=== PATIENT | male | born 1965 | race Hispanic/Latino ===

== ENCOUNTER 2020-01-05 15:41 | Inpatient (IN) | payer OTHER ==
[2020-01-05] MEDS ORDERED: MORPHINE 4 MG/1 ML INJ IV ONE (16:16)
[2020-01-05] MEDS ORDERED: ONDANSETRON 4 MG/2 ML INJ IV ONE (16:17)
--- NOTE | 2020-01-05 16:26 | Emergency Department Report ---
ED Chest Pain HPI - General Chief Complaint: Chest Pain Stated Complaint: CHEST PAIN Time Seen by Provider: 01/05/20 16:06 Source: patient Mode of arrival: Stretcher Limitations: No Limitations - History of Present Illness Initial Comments: 54-year-old male with no significant past medical history presents to the hospital with chest pain a started 2 to 3 hours prior to arrival. 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 He had l lightheadedness, sharp substernal chest pain, shortness of breath, and diaphoresis. No nausea vomiting reported. Pain is intermittent somewhat worse with inspiration and not any change with palpation. Patient received 2 nitroglycerin and aspirin prior to arrival with some mild improvement in pain but it has since returned. Patient states his dad had an CO in his 50s. Patient sees a primary care doctor once a year with last visit 3 to 4 months ago and denies pre-existing medical conditions. Patient does not smoke cigarettes. He also denies recent travel, calf tenderness, leg edema, history of PE/DVT. Patient denies cough, fever, or infectious symptoms EKG was presented to me by [facility] and revealed ST depressions therefore I immediately went to evaluate patient. Initially EMS EKG reviewed and without these acute changes. - Related Data Allergies Allergy/AdvReac Type Severity Reaction Status Date / Time No Known Allergies Allergy Unverified 01/05/20 16:11 Heart Score - HEART Score History: Highly suspicious EKG: Significant ST-depression Age: 45-65 Risk factors: 1-2 risk factors Troponin: < normal limit HEART Score: 6 ED Review of Systems ROS: Stated complaint: CHEST PAIN Other details as noted in HPI Comment: All other systems reviewed and negative ED Past Medical Hx - Past Medical History Previous Medical History?: No - Surgical History Past Surgical History?: No ED Physical Exam - General Limitations: No Limitations - Other Other exam information: General: Moderate distress secondary to pain Head: Atraumatic Eyes: normal appearance ENT: Moist mucous membranes Neck: Normal appearance, no midline tenderness Chest: Clear to auscultation bilaterally, chest wall nontender CV: Regular rate and rhythm Abdomen: Soft, normal bowel sounds, nontender, nondistended, no rebound or guarding Back: Normal inspection Extremity: Normal inspection, full range of motion, no calf tenderness or leg edema Neuro: Alert O x 3, no facial asymmetry, speech clear, no gross motor sensory deficit Psych: Appropriate behavior Skin: Diaphoretic ED Course Vital Signs 01/05/20 01/05/20 01/05/20 15:52 15:56 16:00 Temperature Pulse Rate 67 63 59 L Respiratory 15 14 20 Rate Blood Pressure 157/86 157/86 Blood Pressure [Right] O2 Sat by Pulse 98 Oximetry 01/05/20 01/05/20 01/05/20 16:06 16:10 16:11 Temperature 98.0 F Pulse Rate 63 59 L Respiratory 15 10 L Rate Blood Pressure 141/83 141/83 Blood Pressure [Right] O2 Sat by Pulse 98 Oximetry 01/05/20 01/05/20 01/05/20 16:16 16:24 16:27 Temperature 97.6 F Pulse Rate 64 58 L 53 L Respiratory 17 18 20 Rate Blood Pressure 124/82 Blood Pressure 122/59 [Right] O2 Sat by Pulse 99 99 98 Oximetry 01/05/20 01/05/20 01/05/20 16:31 16:35 16:41 Temperature Pulse Rate 50 L 58 L 47 L Respiratory 8 L 13 15 Rate Blood Pressure 144/90 124/82 124/82 Blood Pressure [Right] O2 Sat by Pulse 99 99 100 Oximetry 01/05/20 01/05/20 01/05/20 16:45 16:51 16:55 Temperature Pulse Rate 52 L 57 L 53 L Respiratory 12 12 11 L Rate Blood Pressure 124/82 124/82 144/90 Blood Pressure [Right] O2 Sat by Pulse 98 98 99 Oximetry 01/05/20 01/05/20 01/05/20 17:00 17:05 17:11 Temperature Pulse Rate 54 L 51 L 58 L Respiratory 14 9 L 13 Rate Blood Pressure 144/90 167/88 167/88 Blood Pressure [Right] O2 Sat by Pulse 99 100 99 Oximetry 01/05/20 01/05/20 01/05/20 17:15 17:21 17:25 Temperature Pulse Rate 194 H Respiratory 17 15 19 Rate Blood Pressure 167/88 170/96 149/94 Blood Pressure [Right] O2 Sat by Pulse 99 98 98 Oximetry 01/05/20 01/05/20 01/05/20 17:31 17:35 17:41 Temperature Pulse Rate 106 H 105 H 100 H Respiratory 14 14 10 L Rate Blood Pressure 149/94 149/94 145/104 Blood Pressure [Right] O2 Sat by Pulse 97 97 98 Oximetry 01/05/20 01/05/20 17:45 17:51 Temperature Pulse Rate 92 H 113 H Respiratory 17 10 L Rate Blood Pressure 152/110 152/110 Blood Pressure [Right] O2 Sat by Pulse 99 97 Oximetry - Reevaluation(s) Reevaluation #1: 01/05/20 16:42 pain suddenly stopped. Repeat ekg ordered 01/05/20 16:49 Pain-free EKG shows resolution of ST depressions suggesting initial changes secondary to unstable angina 01/05/20 at 17:44 around 17:17 I was called to the room for acute change in patient's status. Patient was unresponsive and had V. tach. On the monitor without palpable pulse. Precordial thump attempted well retrieving defibrillator monitor. Chest compressions initiated. After placement on defibrillator patient received defibrillation at 200 J (for vtach) with continued chest compressions. Temporary improvement in rhythm to narrow complex that then quickly deteriorated back to V. tach. Patient received another defibrillator shock 200 J with continued [id number] ventilator support. Rhythm became narrow complex and patient became more responsive with 100% saturation on room air. Once aroused patient had no memory of what had occurred denied any chest pain. Case to be discussed with Dr. Wetzel, Defense Attorney activated, he agrees with amiodarone 150 mg bolus. Epinephrine was not administered during code. Patient started to develop chest pain shortly after successful resuscitation. Nitro initiated at 20mcg and titrated up with improvement in pain. repeat ekg shows afib rate [address] depression in inf and ant/lat leads. also at bedside at this time. - Consultations Consultation #1: 01/05/20 16:[address] Wetzel after review of EKGs from EMS and a ED. Also suspicious for ACS given ST depressions however, there is no signs of ST elevation CO. I do however, notice ST elevation in lead II on the monitor and will repeat EKG after pain medication PATRICK score - Patrick Score Age > 65: (0) No Aspirin use within the Past 7 Days: (0) No 3 or more CAD Risk Factors: (0) No 2 or more Angina events in past 24 hrs: (1) Yes Known CAD with more than 50% Stenosis: (0) No Elevated Cardiac Markers: (0) No ST Deviation Greater than 0.5mm: (1) Yes PATRICK Score: 2 ED Medical Decision Making - Lab Data Result diagrams: 01/05/20 16:27 01/05/20 16:27 Lab Results 01/05/20 01/05/20 01/05/20 Range/Units 16:27 16:27 16:27 WBC 13.0 H (4.5-11.0) K/mm3 RBC 5.10 H (3.65-5.03) M/mm3 Hgb 15.6 H (11.8-15.2) gm/dl Hct 46.8 H (35.5-45.6) % MCV 92 (84-94) fl MCH 31 (28-32) pg MCHC 33 (32-34) % RDW 13.0 L (13.2-15.2) % Plt Count 243 (140-440) K/mm3 Lymph % (Auto) 14.9 (13.4-35.0) % [place] % (Auto) 7.4 H (0.0-7.3) % Eos % (Auto) 0.4 (0.0-4.3) % Baso % (Auto) 0.3 (0.0-1.8) % Lymph # 1.9 (1.2-5.4) K/mm3 [place] # 1.0 H (0.0-0.8) K/mm3 Eos # 0.1 (0.0-0.4) K/mm3 Baso # 0.0 (0.0-0.1) K/mm3 Seg Neutrophils % 77.0 H (40.0-70.0) % Seg Neutrophils # 10.0 H (1.8-7.7) K/mm3 PT 12.6 (12.2-14.9) Sec. INR 0.93 (0.87-1.13) APTT 27.5 (24.2-36.6) Sec. Sodium 136 L (137-145) mmol/L Potassium 4.1 (3.6-5.0) mmol/L Chloride 100.0 (98-107) mmol/L Carbon Dioxide 21 L (22-30) mmol/L Anion Gap 19 mmol/L BUN 21 H (9-20) mg/dL Creatinine 1.0 (0.8-1.5) mg/dL Estimated GFR > 60 ml/min BUN/Creatinine Ratio 21 % Glucose 181 H (75-100) mg/dL Calcium 9.5 (8.4-10.2) mg/dL Troponin T (0.00-0.029) ng/mL 01/05/20 Range/Units 16:27 WBC (4.5-11.0) K/mm3 RBC (3.65-5.03) M/mm3 Hgb (11.8-15.2) gm/dl Hct (35.5-45.6) % MCV (84-94) fl MCH (28-32) pg MCHC (32-34) % RDW (13.2-15.2) % Plt Count (140-440) K/mm3 Lymph % (Auto) (13.4-35.0) % [place] % (Auto) (0.0-7.3) % Eos % (Auto) (0.0-4.3) % Baso % (Auto) (0.0-1.8) % Lymph # (1.2-5.4) K/mm3 [place] # (0.0-0.8) K/mm3 Eos # (0.0-0.4) K/mm3 Baso # (0.0-0.1) K/mm3 Seg Neutrophils % (40.0-70.0) % Seg Neutrophils # (1.8-7.7) K/mm3 PT (12.2-14.9) Sec. INR (0.87-1.13) APTT (24.2-36.6) Sec. Sodium (137-145) mmol/L Potassium (3.6-5.0) mmol/L Chloride (98-107) mmol/L Carbon Dioxide (22-30) mmol/L Anion Gap mmol/L BUN (9-20) mg/dL Creatinine (0.8-1.5) mg/dL Estimated GFR ml/min BUN/Creatinine Ratio % Glucose (75-100) mg/dL Calcium (8.4-10.2) mg/dL Troponin T < 0.010 (0.00-0.029) ng/mL - EKG Data -: EKG Interpreted by De EKG shows normal: sinus rhythm, ST-T waves (Inferior and anterolateral ST depression) - EKG Data When compared to previous EKG there are: previous EKG unavailable - Radiology Data Radiology results: report reviewed CHEST 1 VIEW 01/05/2020 4:35 PM INDICATION / CLINICAL INFORMATION: Chest pain. COMPARISON: None available. FINDINGS: SUPPORT DEVICES: None. HEART / MEDIASTINUM: No significant abnormality. LUNGS / PLEURA: No significant pulmonary or pleural abnormality. No pneumothorax. ADDITIONAL FINDINGS: No significant additional findings. IMPRESSION: 1. No acute findings. - Medical Decision Making Patient having intermittent waxing and waning chest pain with intermittent EKGs findings suggestive of unstable angina. Patient received nitroglycerin and aspirin in route. In the ED he received morphine, Zofran with initiation of a heparin bolus and drip and nitroglycerin drip. Case discussed several times with interventionalist Dr. Wetzel His nurse practitioner came to the ED to evaluate patient. 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 ED Disposition Clinical Impression: Unstable angina, V tach, Cardiac arrest with successful resuscitation Disposition: DC-09 OP ADMIT IP TO THIS HOSP Is pt being admited?: Yes Condition: Stable Referrals: PRIMARY CARE, [Primary Care Provider] - 3-5 Days Time of Disposition: 17:50 (Dr Fonseca/hosp)
[2020-01-05 16:39] LABS: Basophils % (Auto) 0.3 % (0.0-1.8); Eosinophils # (Auto) 0.1 K/mm3 (0.0-0.4); Eosinophils % (Auto) 0.4 % (0.0-4.3); Hematocrit 46.8 % (35.5-45.6); Hemoglobin 15.6 gm/dl (11.8-15.2); Lymphocytes # (Auto) 1.9 K/mm3 (1.2-5.4); Lymphocytes % (Auto) 14.9 % (13.4-35.0); Mean Corpuscular HGB Conc 33 % (32-34); Mean Corpuscular Volume 92 fl (84-94); Monocytes % (Auto) 7.4 % (0.0-7.3); Platelet Count 243 K/mm3 (140-440)
[2020-01-05] MEDS ORDERED: HEPARIN 10,000 UNITS/10 ML VIAL IV ONE (16:41)
[2020-01-05] MEDS ORDERED: NITROPRUSSIDE 50 MG in DEXTROSE 5% IN WATER 248 ML IV ONE (16:45)
[2020-01-05 16:48] LABS: BUN/Creatinine Ratio 21; Blood Urea Nitrogen 21 mg/dL (9-20); Calcium 9.5 mg/dL (8.4-10.2); Hemolysis Index 17
--- NOTE | 2020-01-05 16:48 | XRay Report ---
CHEST 1 VIEW 01/05/2020 4:35 PM INDICATION / CLINICAL INFORMATION: Chest pain. COMPARISON: None available. FINDINGS: SUPPORT DEVICES: None. HEART / MEDIASTINUM: No significant abnormality. LUNGS / PLEURA: No significant pulmonary or pleural abnormality. No pneumothorax. ADDITIONAL FINDINGS: No significant additional findings. IMPRESSION: 1. No acute findings. Signer Name: Gregorio John MD Signed: 01/05/2020 4:44 PM Workstation Name: [id number]
[2020-01-05 16:50] LABS: INR 0.93 (0.87-1.13)
[2020-01-05 16:51] LABS: Partial Thromboplastin Time 27.5 Sec. (24.2-36.6)
[2020-01-05] MEDS: HEPARIN/ 0.45% NACL DRIP 25,000 UNIT/500 ML BAG IV SCH ×2 (17:00→23:05)
--- NOTE | 2020-01-05 17:11 | Consultation ---
<BRIT DUNCAN - Last Filed: 01/05/20 17:04> History of Present Illness Consult date: 01/05/20 Consult reason: chest pain History of present illness: Pt is a 54 y.o. male with no significant past medical hx. He is previously unknown to our practice. Pt presented via EMS with c/o intermittent midsternal, non-radiating CP, which he describes as burning and stabbing. Pt states the pain started after he ate lunch today. He initially felt lightheaded and dizzy post returning to work, after which he began to notice the onset of CP. His CP occurs in episodes lasting 15-20 minutes each. Pt also reports associated diaphoresis and SOB. Pt states the pain is worse upon inspiration. No relieving factors. He denies headache, syncope, palpitations, orthopnea, edema, fever/chills, and N/V. No improvement in pain with NTG and morphine. Trop negative. ECG upon admission revealed ST depressions and lateral T wave inversions. F/u ECG obtained during pain-free period normalized - NSR, no acute ischemic changes. CXR showed no acute findings. Past History Past Medical History: other (kidney stone) Past Surgical History: Other (vasectomy) Social history: denies: smoking, alcohol abuse, prescription drug abuse, IV drug use Family history: other ([place] - father) Medications and Allergies Allergies Allergy/AdvReac Type Severity Reaction Status Date / Time No Known Allergies Allergy Unverified 01/05/20 16:11 Active Meds: Active Medications Aspirin (Aspirin) 81 mg PO QDAY CABRERA Atorvastatin Calcium (Lipitor) 40 mg PO QHS CABRERA Heparin Sodium/Sodium Chloride (Heparin/ 0.45% Nacl-25,000 Unit/500 Ml) 25,000 unit in 500 mls @ 20 mls/hr IV TITRATE CABRERA; Protocol Sodium Nitroprusside 50 mg/ (Dextrose) 250 mls @ 721.212 mls/hr IV TITR ONE; Protocol Stop: 01/05/20 17:05 Review of Systems Constitutional: no weight loss, no weight gain, no fever, no chills, no fatigue, no weakness Ears, nose, mouth and throat: no ear pain, no tinnitis, no nasal congestion, no nasal discharge, no sore throat, no vertigo Cardiovascular: chest pain, lightheadedness, shortness of breath, no orthopnea, no palpitations, no edema, no syncope Respiratory: shortness of breath, pain on inspiration, no cough, no wheezing Gastrointestinal: no abdominal pain, no nausea, no vomiting, no diarrhea, no constipation Genitourinary Male: no dysuria, no flank pain Musculoskeletal: no neck stiffness, no neck pain, no muscle weakness, no muscle cramps Integumentary: no rash, no sores, no wounds Neurological: no head injury, no paralysis, no weakness, no parathesias, no numbness, no tingling, no seizures, no syncope, no vertigo, no headaches Endocrine: no cold intolerance, no heat intolerance Hematologic/Lymphatic: no easy bruising, no easy bleeding Allergic/Immunologic: no urticaria, no wheezing Physical Examination Last Vital Signs Temp 97.6 F 01/05/20 16: Pulse 53 L 01/05/20 16:27 Resp 20 01/05/20 16: BP 122/59 01/05/20 16: Pulse Ox 98 01/05/20 16:27 General appearance: mild distress HEENT: Positive: EOMI, Normocephaly, Mucus Membranes Moist Neck: Positive: neck supple, trachea midline. Negative: JVD/HJR Cardiac: Positive: Reg Rate and Rhythm, S1/S2 Lungs: Positive: clear to auscultation (bilaterally). Negative: No Wheeze, Rales, Rhonchi Neuro: Positive: Grossly Intact, Motor Function Intact, Coordination Normal, Sensory Function Intact. Negative: Numbness, Weakness Abdomen: Positive: Soft, Active Bowel Sounds. Negative: Tender Skin: Negative: Rash, Suspicious Lesions Musculoskeletal: No Pain Extremities: Present: upper extr. pulses, lower extr. pulses. Absent: edema Results 01/05/20 16:27 01/05/20 16:27 Coagulation 01/05/20 Range/Units 16:27 PT 12.6 (12.2-14.9) Sec. INR 0.93 (0.87-1.13) APTT 27.5 (24.2-36.6) Sec. CBC 01/05/20 Range/Units 16: WBC 13.0 H (4.5-11.0) K/mm3 RBC 5.10 H (3.65-5.03) M/mm3 Hgb 15.6 H (11.8-15.2) gm/dl Hct 46.8 H (35.5-45.6) % Plt Count 243 (140-440) K/mm3 Lymph # 1.9 (1.2-5.4) K/mm3 [place] # 1.0 H (0.0-0.8) K/mm3 Eos # 0.1 (0.0-0.4) K/mm3 Baso # 0.0 (0.0-0.1) K/mm3 Comprehensive Metabolic Panel 01/05/20 Range/Units 16:27 Sodium 136 L (137-145) mmol/L Potassium 4.1 (3.6-5.0) mmol/L Chloride 100.0 (98-107) mmol/L Carbon Dioxide 21 L (22-30) mmol/L BUN 21 H (9-20) mg/dL Creatinine 1.0 (0.8-1.5) mg/dL Glucose 181 H (75-100) mg/dL Calcium 9.5 (8.4-10.2) mg/dL - Imaging and Cardiology EKG: report reviewed, image reviewed - EKG Interpretation EKG shows: sinus rhythm EKG interpretations Repolarization changes or abnormalities: ST or T wave suggestive of ischemia Assessment and Plan Initiate heparin gtt and nitro gtt. Initiate ASA and statin therapy. Plan for LHC. Pt seen in conjunction with Dr. Wetzel, who agrees with the assessment and plan of care. - Patient Problems (1) STEMI (ST elevation myocardial infarction) Onset Date: ~01/05/20 Status: Acute <TIFFANY WETZEL - Last Filed: 01/05/20 19:13> Medications and Allergies Active Meds: Active Medications Aspirin (Aspirin) 81 mg PO QDAY CABRERA Atorvastatin Calcium (Lipitor) 40 mg PO QHS CABRERA Heparin Sodium/Sodium Chloride (Heparin/ 0.45% Nacl-25,000 Unit/500 Ml) 25,000 unit in 500 mls @ 20 mls/hr IV TITRATE CABRERA; Protocol Last Admin: 01/05/20 17:00 Dose: 1,000 units/hr, 20 mls/hr Documented by: Nitroglycerin/Dextrose (Tridil Drip 50mg/250ml) 50 mg in 250 mls @ 6 mls/hr IV TITR ONE; Protocol Stop: 01/07/20 10:53 Last Admin: 01/05/20 17:15 Dose: 25 mcg/min, 7.5 mls/hr Documented by: Sodium Chloride (Sodium Chloride Flush Syringe 10 Ml) 10 ml IV BID CABRERA Sodium Chloride (Sodium Chloride Flush Syringe 10 Ml) 10 ml IV PRN PRN PRN Reason: LINE FLUSH Physical Examination Vital Signs Pulse Resp 67 15 01/05/20 15:52 01/05/20 15:52 Results 01/05/20 16:27 01/05/20 16:27 Coagulation 01/05/20 Range/Units 16:27 PT 12.6 (12.2-14.9) Sec. INR 0.93 (0.87-1.13) APTT 27.5 (24.2-36.6) Sec. CBC 01/05/20 Range/Units 16:27 WBC 13.0 H (4.5-11.0) K/mm3 RBC 5.10 H (3.65-5.03) M/mm3 Hgb 15.6 H (11.8-15.2) gm/dl Hct 46.8 H (35.5-45.6) % Plt Count 243 (140-440) K/mm3 Lymph # 1.9 (1.2-5.4) K/mm3 [place] # 1.0 H (0.0-0.8) K/mm3 Eos # 0.1 (0.0-0.4) K/mm3 Baso # 0.0 (0.0-0.1) K/mm3 Comprehensive Metabolic Panel 01/05/20 Range/Units 16:27 Sodium 136 L (137-145) mmol/L Potassium 4.1 (3.6-5.0) mmol/L Chloride 100.0 (98-107) mmol/L Carbon Dioxide 21 L (22-30) mmol/L BUN 21 H (9-20) mg/dL Creatinine 1.0 (0.8-1.5) mg/dL Glucose 181 H (75-100) mg/dL Calcium 9.5 (8.4-10.2) mg/dL Assessment and Plan pt had emergent lhc showed lt main patent LAD proximal 95% culprit vessel circumflex patent OM1 OM 2 patent RCA patent normal V function. Unsuccessful PCI of his proximal ID with a drug-eluting 4.0 x 18 mm stent will be on dual antiplatelet procedure was done by the right radial approach high-dose statin. We will hold off beta-blockers in view of labile blood pressure discussed in detail with the patient patient's . - Patient Problems (1) Hyperlipemia, mixed Current Visit: Yes Status: Chronic (2) Acute diastolic (congestive) heart failure Current Visit: Yes Status: Acute (3) Cardiac arrest with successful resuscitation Current Visit: Yes Status: Acute (4) V tach Current Visit: Yes Status: Acute (5) Unstable angina Current Visit: No Status: Acute
[2020-01-05] MEDS ORDERED: NITROGLYCERIN DRIP 50 MG/250 ML BOTTLE IV ONE (17:14)
[2020-01-05] MEDS ORDERED: AMIODARONE 150 MG/3 ML INJ IV ONE (17:30)
[2020-01-05] MEDS ORDERED: ASPIRIN 325 MG TAB PO SCH (18:00)
[2020-01-05] MEDS ORDERED: MIDAZOLAM 2 MG/2 ML INJ ONE (18:01)
[2020-01-05] MEDS ORDERED: fentaNYL 100 MCG/2 ML INJ ONE (18:01)
[2020-01-05] MEDS ORDERED: VERAPAMIL 5 MG/2 ML INJ ONE (18:02)
[2020-01-05] MEDS ORDERED: HEPARIN/NS 5000 UNIT/500ML 1,000 ML IR ONE (18:02)
[2020-01-05] MEDS ORDERED: NITROGLYCERIN SYRINGE 3 ML ONE (18:02)
[2020-01-05] MEDS ORDERED: LIDOCAINE (2%) 20 MG/1 ML VIAL 20 ML MDV INFILTRATI ONE (18:02)
[2020-01-05] MEDS ORDERED: SODIUM CHLORIDE 0.9% 1000 ML 1,000 ML ONE (18:03)
[2020-01-05] MEDS: HEPARIN 10,000 UNITS/10 ML VIAL ONE ×2 (18:12→18:33)
--- NOTE | 2020-01-05 18:18 | History and Physical Report ---
History of Present Illness Chief complaint: Im having pain in my chest History of present illness: 54 YO Male with Obesity, Nephrolithisis presents to ED for evaluation. Patient states that he had experienced a sudden onset of pain in his chest which began approximately 3 hours prior to presentation to the hospital. 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 EMS notified and upon arrival the patient was found to be in distress and subsequently transported to [facility] for further evaluation and care. Patient seen and evaluated in the emergency department. Lab and imaging studies reviewed. Patient states that his pain is 7/10, sharp, crushing in nature, substernal, non radiating, associated with shortness of breath, associated with diaphoresis, worsened with exertion, relieved with rest, relieved with nitro.patient EKG showed ST depression. Cardiology team notified and then the emergency department. Patient subsequently developed cardiac arrest while in the [facility] department. Patient treated in accordance with ACLS protocol with return of perfusing rhythm. Patient taken urgently to cardiac Manager Auto for surgical intervention as per cardiology team. Patient admitted to ICU. No further history obtainable. No reports of fever, chills, palpitations, syncope, prolonged travel/immobility, individual/family history of DVT/PE/bleeding/blood clotting disorders, productive cough, skin rash, known ill contacts. No prior admission for review. No medication listed at time of admission for reconciliation. PUI?: No Past History Past Medical History: other (kidney stone) Past Surgical History: Other (vasectomy) Social history: denies: smoking, alcohol abuse, prescription drug abuse, IV drug use Family history: other ([place] - father) Medications and Allergies Allergies Allergy/AdvReac Type Severity Reaction Status Date / Time No Known Allergies Allergy Unverified 01/05/20 16:11 Home Medications Medication Instructions Recorded Confirmed Last Taken Type Aspirin EC [Halfprin EC] 81 mg PO QDAY #30 tablet 01/08/20 Unknown Rx AtorvaSTATin [Lipitor] 40 mg PO QHS #30 tablet 01/08/20 Unknown Rx Metoprolol [Lopressor TAB] 25 mg PO Q8HR #90 tablet 01/08/20 Unknown Rx Ticagrelor [Brilinta] 90 mg PO BID #60 tablet 01/08/20 Unknown Rx Active Meds: Active Medications Aspirin (Aspirin) 81 mg PO QDAY CABRERA Atorvastatin Calcium (Lipitor) 40 mg PO QHS [facility] Heparin Sodium/Sodium Chloride (Heparin/ 0.45% Nacl-25,000 Unit/500 Ml) 25,000 unit in 500 mls @ 20 mls/hr IV TITRATE CABRERA; Protocol Nitroglycerin/Dextrose (Tridil Drip 50mg/250ml) 50 mg in 250 mls @ 6 mls/hr IV TITR ONE; Protocol Stop: 01/07/20 10:53 Review of Systems Constitutional: no weight loss, no weight gain, no fever, no chills Ears, nose, mouth and throat: no ear pain, no ear discharge, no tinnitis, no decreased hearing, no nose pain Cardiovascular: chest pain, shortness of breath, dyspnea on exertion, no orthopnea, no rapid/irregular heart beat, no edema, no syncope Respiratory: no cough, no cough with sputum, no excessive sputum, no hemoptysis Gastrointestinal: no nausea, no vomiting, no diarrhea, no constipation Genitourinary Male: no hematuria, no flank pain, no discharge, no urinary frequency, no urinary hesitancy Rectal: no pain, no incontinence, no bleeding Musculoskeletal: no neck stiffness, no neck pain, no arm numbness/tingling, no shooting leg pain Integumentary: no rash, no pruritis, no redness, no sores Neurological: no transient paralysis, no paralysis, no weakness, no parathesias, no numbness, no tingling, no seizures Psychiatric: no memory loss, no change in sleep habits, no sleep disturbances, no insomnia, no change in appetite, no change in libido, no suicidal ideation Endocrine: no cold intolerance, no heat intolerance, no polyphagia, no excessive thirst, no polyuria, no nocturia, no excessive sweating Hematologic/Lymphatic: no easy bruising, no easy bleeding, no lymphadenopathy, no lymphedema Allergic/Immunologic: no urticaria, no allergic rhinitis, no persistent infections, no anaphylaxis Exam - Constitutional Vitals: Temp Pulse Resp BP Pulse Ox 97.6 F 53 L 20 122/59 98 01/05/20 16:27 01/05/20 16:27 01/05/20 16:27 01/05/20 16:27 01/05/20 16:27 General appearance: Present: mild distress - EENT Eyes: Present: PERRL ENT: hearing intact, clear oral mucosa - Neck Neck: Present: supple, normal ROM - Respiratory Respiratory effort: normal Respiratory: bilateral: CTA - Cardiovascular Heart Sounds: Present: S1 & S2. Absent: rub, click - Extremities Extremities: pulses symmetrical, No edema Peripheral Pulses: within normal limits - Abdominal General gastrointestinal: Present: soft, non-tender, non-distended, normal bowel sounds Male genitourinary: Present: normal - Integumentary Integumentary: Present: clear, warm, dry - Musculoskeletal Musculoskeletal: gait normal, strength equal bilaterally - Psychiatric Psychiatric: appropriate mood/affect, intact judgment & insight - Neurologic Neurologic: CNII-XII intact, moves all extremities Results - Labs CBC & Chem 7: 01/07/20 05:13 01/07/20 05:13 Labs: Abnormal lab results 01/05/20 01/05/20 Range/Units 16:27 16:27 WBC 13.0 H (4.5-11.0) K/mm3 RBC 5.10 H (3.65-5.03) M/mm3 Hgb 15.6 H (11.8-15.2) gm/dl Hct 46.8 H (35.5-45.6) % RDW 13.0 L (13.2-15.2) % Williamson % (Auto) 7.4 H (0.0-7.3) % Williamson # 1.0 H (0.0-0.8) K/mm3 Seg Neutrophils % 77.0 H (40.0-70.0) % Seg Neutrophils # 10.0 H (1.8-7.7) K/mm3 Sodium 136 L (137-145) mmol/L Carbon Dioxide 21 L (22-30) mmol/L BUN 21 H (9-20) mg/dL Glucose 181 H (75-100) mg/dL Assessment and Plan - Patient Problems (1) STEMI (ST elevation myocardial infarction) Onset Date: ~01/05/20 Status: Acute Plan to address problem: Cardiology consult placed in the emergency department. Patient taken urgently to cardiac catheterization lab for cardiac intervention, heparin drip, supportive care, serial EKG, pain control. (2) Acute diastolic (congestive) heart failure Status: Acute Plan to address problem: Cardiology consult placed in ED, supportive care, echocardiogram when medically stable, strict I/O, monitor urine output every shift, daily weight, low- sodium/cardiac diet when patient is able to tolerate oral diet, afterload reduction. (3) Cardiac arrest with successful resuscitation Status: Resolved Plan to address problem: Patient treated in accordance with ACLS protocol protocol with return of perfusing cardiac rhythm. (4) Unstable angina Status: Inactive Plan to address problem: Serial cardiac enzymes, EKG, cardiology consulted, heparin drip, supportive care, morphine, supplemental oxygen, nitro, aspirin. (5) Obesity hypoventilation syndrome Status: Acute Plan to address problem: Submental oxygen, nebulized therapy, supportive care, balanced diet, increased physical activity at discharge, (6) DVT prophylaxis Status: Acute Plan to address problem: SCD to bilateral lower extremities while in bed, continue heparin.
[2020-01-05] MEDS ORDERED: ALUM-MAG HYDROXIDE-SIMETHICONE 200-200-20MG/5ML ORAL LIQD 30 ML ONE (18:56)
[2020-01-05] MEDS ORDERED: TICAGRELOR 90 MG TAB ONE (18:56)
[2020-01-05] MEDS ORDERED: SODIUM CHLORIDE 0.9% 1000 ML 1,000 ML IV SCH (19:30)
--- NOTE | 2020-01-05 19:37 | Cardiac Catherization Report ---
LEFT HEART CATHETERIZATION AND PERCUTANEOUS CORONARY INTERVENTION AND ENDOVASCULAR ULTRASOUND REPORT CLINICAL INFORMATION: This is a 54-year-old gentleman with obesity and strong family history of premature coronary artery disease, presents with chest pain since 12 EKG. Initial EKG was nondiagnostic. His unstable angina treated. The patient went into V-Fib. The patient was brought emergently to the fence laborer. Procedure was done via the right radial artery, sterile technique, local anesthesia, 6-Angolan radial sheath inserted. LEFT SYSTEM FINDINGS: LV gram done in MALAYSIAN and ESTEVEZ shows normal LV function, LVEDP 20 mmHg, LV is 135, aortic is 134/96. No gradient across the aortic valve on pullback. RCA engaged with JR4 catheter, large dominant vessel, patent from proximally and distally. PDA, PLV are [id number] caliber vessel, patent. Left system engaged with an EBU 3.5 catheter. Left main is large and patent, bifurcates into large LAD that has proximal 99% lesion with PATRICK 2 flow. Diagonal 1 is a large caliber vessel, patent with mild luminal irregularities. Circumflex is a large caliber vessel, patent, bifurcates into large OM1 and OM2 that are patent. PERCUTANEOUS CORONARY INTERVENTION OF THE LAD: 1. Engaged the left system with EBU 3.5 guide catheter. 2. Used a short [place] wire to get into distal LAD. 3. Predilated with 2.5 x 12 times 2 inflations at 15 atmospheres. Restore a PATRICK 3 flow. 4. Intravascular ultrasound showed diffuse disease proximally with distal reference vessel 4.5 and proximally 5.0. 5. Stented with a 4.0 x 18 drug-eluting Xience stent, inflated to 16 atmospheres and postdilated at 4.5 x 12 at 12 atmospheres x 2 inflations. 6. Excellent angiographic result, PATRICK 3 flow, reduced stenosis 99% to 0. No dissection or perforation or embolization noted. 7. Repeat intravascular ultrasound showed stent was well opposed and expanded. No dissection or perforation noted. 8. Coronary wire and IVUS removed. Multiple angiograms, PATRICK 3 flow, excellent angiographic result. 9. A 6-Angolan guiding catheter taken over guidewire, 6-Angolan radial sheath was discontinued. Radial band applied. No hematoma, no bleeding. SUMMARY: 1. Successful PCI of the proximal LAD with a drug-eluting Xience 4.0 x 18, post-dilated with a 4.25 x 12 IVUS directed angiographically, left main is patent. Rest of the LAD is patent with mild irregularities. Diagonal 1 is a bjkdih-vv-cglme caliber vessel, patent with mild luminal irregularities. Circumflex is a large caliber vessel, patent, bifurcates into large OM1, OM2 patent. RCA is a large dominant vessel, patent. PDA, PLV patent. 2. Normal LV function. 3. Post-PCI care. Discussed this in detail with the patient's primary care doctor, patient and family. Aspirin, Brilinta, high dose statin. Hold off beta fredo and HAM in view of labile blood pressure. JOB# [id number] ANGELIQUE/VON
[2020-01-05 21:58] LABS: Chol/HDL Ratio 2.41 %
[2020-01-06 04:18] LABS: Basophils % (Auto) 0.2 % (0.0-1.8); Eosinophils # (Auto) 0.1 K/mm3 (0.0-0.4); Eosinophils % (Auto) 0.4 % (0.0-4.3); Hematocrit 45.3 % (35.5-45.6); Hemoglobin 15.3 gm/dl (11.8-15.2); Lymphocytes # (Auto) 2.1 K/mm3 (1.2-5.4); Lymphocytes % (Auto) 14.1 % (13.4-35.0); Mean Corpuscular HGB Conc 34 % (32-34); Mean Corpuscular Volume 91 fl (84-94); Monocytes # (Auto) 1.2 K/mm3 (0.0-0.8); Monocytes % (Auto) 7.6 % (0.0-7.3); Platelet Count 219 K/mm3 (140-440); Red Blood Count 4.97 M/mm3 (3.65-5.03); Red Cell Distribution Width 13.1 % (13.2-15.2)
[2020-01-06] MEDS: NITROGLYCERIN 0.4 MG TAB SUBL SL PRN ×2 (04:33→04:44)
[2020-01-06] MEDS ORDERED: METOPROLOL TARTRATE 25 MG TAB PO ONE (04:45)
[2020-01-06 04:56] LABS: Creatine Kinase MB 78.1 ng/mL (0.0-4.0)
[2020-01-06 04:58] LABS: BUN/Creatinine Ratio 20; Blood Urea Nitrogen 18 mg/dL (9-20); Calcium 8.8 mg/dL (8.4-10.2); Hemolysis Index 11
[2020-01-06] MEDS ORDERED: dilTIAZem/D5W 100 MG/100 ML BAG IV SCH (05:00)
[2020-01-06] MEDS ORDERED: MORPHINE 2 MG/1 ML INJ IM ONE (05:15)
[2020-01-06] MEDS: NITROGLYCERIN DRIP 50 MG/250 ML BOTTLE IV SCH ×3 (05:30→05:57)
[2020-01-06] MEDS ORDERED: AMIODARONE 150 MG in DEXTROSE 5% IN WATER 97 ML IV ONE (05:48)
[2020-01-06] MEDS ORDERED: NITROGLYCERIN 2% OINT 1 GM TP SCH (06:00)
[2020-01-06] MEDS ORDERED: METOPROLOL TARTRATE 25 MG TAB PO SCH (06:00)
[2020-01-06] MEDS: MORPHINE 2 MG/1 ML INJ IV PRN ×3 (06:55→23:07)
[2020-01-06] MEDS: AMIODARONE 900 MG in DEXTROSE 5% IN WATER 482 ML IV SCH (07:16)
[2020-01-06] MEDS: ASPIRIN EC 81 MG TAB PO SCH (10:17)
[2020-01-06] MEDS: METOPROLOL TARTRATE 25 MG TAB PO SCH ×2 (10:18→22:00)
[2020-01-06] MEDS: TICAGRELOR 90 MG TAB PO SCH ×3 (10:18→22:01)
[2020-01-06] MEDS ORDERED: KETOROLAC 30 MG/1 ML INJ IV SCH (10:30)
--- NOTE | 2020-01-06 10:49 | Progress Note ---
Assessment and Plan Non-STEMI Post V. fib arrest New onset atrial fibrillation Pleuritic chest pain Hyperlipidemia Coronary disease status post PCI Acute diastolic dysfunction Recommend in view of new onset atrial fibrillation probably from post V. fib arrest echo is pending continue IV amiodarone and IV heparin is on aspirin and Brilinta nitroglycerin was DC'd and started on Lopressor 25 mg 3 times a day anti-inflammatory for his pleuritic chest pain discussed this with patient's via face time with the patient EKG no longer shows ST depressions but has atrial fibrillation - Patient Problems (1) Hyperlipemia, mixed Current Visit: Yes Status: Chronic (2) Acute diastolic (congestive) heart failure Current Visit: Yes Status: Acute (3) Cardiac arrest with successful resuscitation Current Visit: Yes Status: Acute (4) V tach Current Visit: Yes Status: Acute (5) Unstable angina Current Visit: No Status: Inactive Subjective Date of service: 01/06/20 Principal diagnosis: nstemi and post v fib arrest Interval history: Patient was having chest pain which is reproducible last night and had atrial fi brillation this morning chest pain is better but it is worse when he takes a deep breath PUI?: No Objective Vital Signs Temp Pulse Pulse Resp BP BP Pulse Ox 01/06/20 10:13 97 01/06/20 08:41 97 H 19 88/60 01/06/20 08:30 91 H 17 88/60 01/06/20 08:21 105 H 17 98/53 01/06/20 08:11 92 H 17 89/55 01/06/20 08:00 98.1 F 82 18 89/55 01/06/20 07:51 90 17 97/59 01/06/20 07:41 89 18 98/54 90 01/06/20 07:30 88 21 98/54 99 01/06/20 07:21 101 H 24 96/60 91 01/06/20 07:11 111 H 17 96/55 93 01/06/20 07:00 98.1 F 96 H 24 98/52 92 01/06/20 06:51 88 29 H 95/59 91 01/06/20 06:41 99 H 33 H 112/63 92 01/06/20 06:30 118 H 23 112/63 92 01/06/20 06:21 120 H 20 105/67 93 01/06/20 06:11 119 H 28 H 108/61 93 01/06/20 06:01 125 H 17 108/61 94 01/06/20 05:51 117 H 22 117/69 92 01/06/20 05:41 135 H 22 133/61 91 01/06/20 05:31 112 H 20 132/72 95 01/06/20 05:21 141 H 18 132/72 96 01/06/20 05:11 143 H 15 132/72 94 01/06/20 05:01 132 H 22 104/77 93 01/06/20 04:51 141 H 18 114/78 93 01/06/20 04:44 138 H 127/73 01/06/20 04:41 129 H 24 144/91 96 01/06/20 04:36 124 H 144/91 01/06/20 04:33 126 H 144/91 01/06/20 04:31 120 H 20 144/91 97 01/06/20 04:21 130 H 22 137/93 01/06/20 04:11 128 H 21 137/93 01/06/20 04:01 130 H 20 137/93 01/06/20 04:00 142 H 98 01/06/20 03:51 122 H 12 137/93 01/06/20 03:41 126 H 21 137/93 01/06/20 03:31 116 H 12 137/93 01/06/20 03:21 123 H 13 137/93 01/06/20 03:11 120 H 17 137/93 01/06/20 03:07 98 F 01/06/20 03:00 125 H 15 137/93 01/06/20 02:51 122 H 28 H 143/92 01/06/20 02:41 122 H 31 H 143/92 01/06/20 02:30 123 H 19 160/89 01/06/20 02:21 133 H 13 143/92 01/06/20 02:11 119 H 13 143/92 01/06/20 02:00 102 H 16 143/92 01/06/20 01:51 133 H 13 150/76 01/06/20 01:41 122 H 16 150/76 01/06/20 01:31 134 H 12 150/76 01/06/20 01:21 137 H 14 150/76 01/06/20 01:11 121 H 14 150/76 01/06/20 01:01 124 H 20 150/76 01/06/20 00:51 129 H 17 138/82 01/06/20 00:41 141 H 11 L 138/82 01/06/20 00:31 120 H 19 138/82 01/06/20 00:21 134 H 13 138/82 01/06/20 00:11 125 H 20 138/82 01/06/20 00:01 133 H 25 H 138/82 01/06/20 00:00 136 H 98 01/05/20 23:51 133 H 25 H 160/89 01/05/20 23:50 98 F 01/05/20 23:41 130 H 25 H 160/89 01/05/20 22:00 134 H 01/05/20 21:56 129 H 98 01/05/20 20:43 99 01/05/20 20:00 97.7 F 01/05/20 17:51 113 H 10 L 152/110 97 01/05/20 17:45 92 H 17 152/110 99 01/05/20 17:41 100 H 10 L 145/104 98 01/05/20 17:35 105 H 14 149/94 97 01/05/20 17:31 106 H 14 149/94 97 01/05/20 17:25 19 149/94 98 01/05/20 17:21 15 170/96 98 01/05/20 17:15 194 H 17 167/88 99 01/05/20 17:11 58 L 13 167/88 99 01/05/20 17:05 51 L 9 L 167/88 100 01/05/20 17:00 54 L 14 144/90 99 01/05/20 16:55 53 L 11 L 144/90 99 01/05/20 16:51 57 L 12 124/82 98 01/05/20 16:45 52 L 12 124/82 98 01/05/20 16:41 47 L 15 124/82 100 01/05/20 16:35 58 L 13 124/82 99 01/05/20 16:31 50 L 8 L 144/90 99 01/05/20 16:27 97.6 F 53 L 20 122/59 98 01/05/20 16:24 58 L 18 99 01/05/20 16:16 64 17 124/82 99 01/05/20 16:11 98.0 F 01/05/20 16:10 59 L 10 L 141/83 98 01/05/20 16:06 63 15 141/83 01/05/20 16:00 59 L 20 157/86 98 01/05/20 15:56 63 14 157/86 01/05/20 15:52 67 15 - Physical Examination General: Other HEENT: Positive: EOMI, Normocephaly, Mucus Membranes Moist Neck: Positive: neck supple, trachea midline. Negative: JVD/HJR Cardiac: Positive: Irregularly Regular Lungs: Positive: clear to auscultation Neuro: Positive: Grossly Intact, Motor Function Intact, Coordination Normal, Sensory Function Intact. Negative: Numbness, Weakness Abdomen: Positive: Soft, Active Bowel Sounds. Negative: Tender Skin: Negative: Rash, Suspicious Lesions Musculoskeletal: No Pain Extremities: Present: upper extr. pulses, lower extr. pulses. Absent: edema - Labs and Meds Cardiac Enzymes 01/06/20 Range/Units 03:39 CK-MB (CK-2) 78.1 H (0.0-4.0) ng/mL Coagulation 01/05/20 Range/Units 16:27 PT 12.6 (12.2-14.9) Sec. INR 0.93 (0.87-1.13) APTT 27.5 (24.2-36.6) Sec. Lipids 01/05/20 Range/Units 21:02 Triglycerides 48 (2-149) mg/dL Cholesterol 152 (50-199) mg/dL HDL Cholesterol 63 H (40-59) mg/dL Cholesterol/HDL Ratio 2.41 % CBC 01/05/20 01/06/20 Range/Units 16:27 03:39 WBC 13.0 H 15.1 H (4.5-11.0) K/mm3 RBC 5.10 H 4.97 (3.65-5.03) M/mm3 Hgb 15.6 H 15.3 H (11.8-15.2) gm/dl Hct 46.8 H 45.3 (35.5-45.6) % Plt Count 243 219 (140-440) K/mm3 Lymph # 1.9 2.1 (1.2-5.4) K/mm3 [place] # 1.0 H 1.2 H (0.0-0.8) K/mm3 Eos # 0.1 0.1 (0.0-0.4) K/mm3 Baso # 0.0 0.0 (0.0-0.1) K/mm3 Comprehensive Metabolic Panel 01/05/20 01/06/20 Range/Units 16:27 03:39 Sodium 136 L 139 (137-145) mmol/L Potassium 4.1 4.2 (3.6-5.0) mmol/L Chloride 100.0 103.6 (98-107) mmol/L Carbon Dioxide 21 L 19 L (22-30) mmol/L BUN 21 H 18 (9-20) mg/dL Creatinine 1.0 0.9 (0.8-1.5) mg/dL Glucose 181 H 148 H (75-100) mg/dL Calcium 9.5 8.8 (8.4-10.2) mg/dL - Imaging and Cardiology EKG: report reviewed, image reviewed Cardiac cath: report reviewed (Left main patent LAD proximal 95 diagonal 1 patent circumflex pain obtuse marginal 1 obtuse marginal 2 patent RCA patent and normal V function PCI of the LAD with a drug-eluting 4.0 x 18 mm postdilated 4.25) - Telemetry EKG Rhythm: Atrial Fibrillation Repolarization changes or abnormalities: ST or T wave suggestive of ischemia
--- NOTE | 2020-01-06 10:49 | Progress Note ---
Assessment and Plan Assessment and plan: Acute coronary syndrome. Pt had emergent lhc showed lt main patent LAD proximal 95% culprit vessel circumflex patent OM1 OM 2 patent RCA patent normal V function. Unsuccessful PCI of his proximal ID with a drug-eluting 4.0 x 18 mm stent. Cardiology following. Patient will be maintained on DAPT but will hold off beta-blockers in view of labile blood pressure. Acute diastolic heart failure. Continue treatment per cardiology. s/p cardiopulmonary arrest/V. tach. Continue ICU/telemetry monitoring. Continue amiodarone and beta-fredo. Hyperlipidemia. Continue statins History Interval history: Pt is a 54 y.o. male with no significant past medical hx who presented via EMS with c/o intermittent midsternal, non-radiating CP, which he describes as burning and stabbing. No improvement in pain with NTG and morphine. Trop negative. ECG upon admission revealed ST depressions and lateral T wave inversions. F/u ECG obtained during pain-free period normalized - NSR, no acute ischemic changes. CXR showed no acute findings. Patient subsequently developed cardiac arrest while in the emergency department. Patient treated in accordance with ACLS protocol with return of perfusing rhythm. Patient taken urgently to cardiac Facing End Trimmer for surgical intervention as per cardiology team. The patient had emergent lhc showed lt main patent LAD proximal 95% culprit vessel circumflex patent OM1 OM 2 patent RCA patent normal V function. Unsuccessful PCI of his proximal ID with a drug-eluting 4.0 x 18 mm stent will be on dual antiplatelet procedure was done by the right radial approach high-dose statin. PUI?: No Hospitalist Physical - Constitutional Vitals: Temp Pulse Resp BP Pulse Ox 98.1 F 97 H 19 88/60 97 01/06/20 08:00 01/06/20 08:41 01/06/20 08:41 01/06/20 08:41 01/06/20 10:13 General appearance: Present: no acute distress - EENT Eyes: Present: PERRL, EOM intact ENT: hearing intact, clear oral mucosa, dentition normal - Neck Neck: Present: supple, normal ROM - Respiratory Respiratory effort: normal Respiratory: bilateral: CTA - Cardiovascular Rhythm: regular Heart Sounds: Present: S1 & S2. Absent: gallop, rub - Extremities Extremities: no ischemia, No edema, Full ROM - Abdominal General gastrointestinal: soft, non-tender, non-distended, normal bowel sounds - Integumentary Integumentary: Present: clear, warm, dry - Neurologic Neurologic: CNII-XII intact, moves all extremities PATRICK score - Patrick Score Age > 65: (0) No Aspirin use within the Past 7 Days: (0) No 3 or more CAD Risk Factors: (0) No 2 or more Angina events in past 24 hrs: (1) Yes Known CAD with more than 50% Stenosis: (0) No Elevated Cardiac Markers: (0) No ST Deviation Greater than 0.5mm: (1) Yes PATRICK Score: 2 Results - Labs CBC & Chem 7: 01/06/20 03:39 01/06/20 03:39 Labs: Laboratory Last Values WBC 15.1 K/mm3 (4.5-11.0) H 01/06/20 03:39 RBC 4.97 M/mm3 (3.65-5.03) 01/06/20 03:39 Hgb 15.3 gm/dl (11.8-15.2) H 01/06/20 03:39 Hct 45.3 % (35.5-45.6) 01/06/20 03:39 MCV 91 fl (84-94) 01/06/20 03:39 MCH 31 pg (28-32) 01/06/20 03:39 MCHC 34 % (32-34) 01/06/20 03:39 RDW 13.1 % (13.2-15.2) L 01/06/20 03:39 Plt Count 219 K/mm3 (140-440) 01/06/20 03:39 Lymph % (Auto) 14.1 % (13.4-35.0) 01/06/20 03:39 [place] % (Auto) 7.6 % (0.0-7.3) H 01/06/20 03:39 Eos % (Auto) 0.4 % (0.0-4.3) 01/06/20 03:39 Baso % (Auto) 0.2 % (0.0-1.8) 01/06/20 03:39 Lymph # 2.1 K/mm3 (1.2-5.4) 01/06/20 03:39 [place] # 1.2 K/mm3 (0.0-0.8) H 01/06/20 03:39 Eos # 0.1 K/mm3 (0.0-0.4) 01/06/20 03:39 Baso # 0.0 K/mm3 (0.0-0.1) 01/06/20 03:39 Seg Neutrophils % 77.7 % (40.0-70.0) H 01/06/20 03:39 Seg Neutrophils # 11.8 K/mm3 (1.8-7.7) H 01/06/20 03:39 PT 12.6 Sec. (12.2-14.9) 01/05/20 16:27 INR 0.93 (0.87-1.13) 01/05/20 16:27 APTT 27.5 Sec. (24.2-36.6) 01/05/20 16:27 Sodium 139 mmol/L (137-145) 01/06/20 03:39 Potassium 4.2 mmol/L (3.6-5.0) 01/06/20 03:39 Chloride 103.6 mmol/L (98-107) 01/06/20 03:39 Carbon Dioxide 19 mmol/L (22-30) L 01/06/20 03:39 Anion Gap 21 mmol/L 01/06/20 03:39 BUN 18 mg/dL (9-20) 01/06/20 03:39 Creatinine 0.9 mg/dL (0.8-1.5) 01/06/20 03:39 Estimated GFR > 60 ml/min 01/06/20 03:39 BUN/Creatinine Ratio 20 % 01/06/20 03:39 Glucose 148 mg/dL (75-100) H 01/06/20 03:39 Calcium 8.8 mg/dL (8.4-10.2) 01/06/20 03:39 Total Creatine Kinase 620 units/L (55-170) H 01/06/20 03:39 CK-MB (CK-2) 78.1 ng/mL (0.0-4.0) H 01/06/20 03:39 CK-MB (CK-2) Rel Index 12.5 (0-4) H 01/06/20 03:39 Troponin T 0.965 ng/mL (0.00-0.029) H* D 01/06/20 03:39 Triglycerides 48 mg/dL (2-149) 01/05/20 21:02 Cholesterol 152 mg/dL (50-199) 01/05/20 21:02 LDL Cholesterol Direct 90 mg/dL (50-130) 01/05/20 21:02 HDL Cholesterol 63 mg/dL (40-59) H 01/05/20 21:02 Cholesterol/HDL Ratio 2.41 % 01/05/20 21:02 Moses/IV: Voiding Method Urinal IV Catheter Type [Left Hand] Peripheral IV IV Catheter Type [Left Forearm Peripheral IV ] IV Catheter Type [Right Hand] Peripheral IV Active Medications - Current Medications Current Medications: Generic Name Dose Route Start Last Admin Trade Name Freq PRN Reason Stop Dose Admin Aspirin 81 mg 01/06/20 10:00 01/06/20 10:17 Halfprin Ec PO 81 mg QDAY CABRERA Administration Atorvastatin Calcium 40 mg 01/05/20 22:00 01/05/20 23:05 Lipitor PO 40 mg QHS CABRERA Administration Amiodarone HCl 900 mg/ 500 mls @ 33.333 mls/hr 01/06/20 06:00 01/06/20 07:16 Dextrose IV 1 mg/min DIRECT CABRERA 33.333 mls/hr Administration Protocol 1 MG/MIN Ketorolac Tromethamine 30 mg 01/06/20 10:30 Toradol IV 01/06/20 13:00 ONCE CABRERA Metoprolol Tartrate 25 mg 01/06/20 10:00 01/06/20 10:18 Metoprolol PO 25 mg Q8H CABRERA Administration Morphine Sulfate 2 mg 01/06/20 06:30 01/06/20 06:55 Morphine IV 2 mg Q6H PRN Administration chest pain Nitroglycerin 0.4 mg 01/06/20 04:24 01/06/20 04:44 Nitrostat SL 0.4 mg .Q5MIN PRN Administration Chest Pain Sodium Chloride 10 ml 01/05/20 22:00 Sodium Chloride Flush Syringe 10 Ml IV BID CABRERA Sodium Chloride 10 ml 01/05/20 18:16 Sodium Chloride Flush Syringe 10 Ml IV PRN PRN LINE FLUSH Ticagrelor 90 mg 01/05/20 22:00 01/06/20 10:18 Brilinta PO 90 mg BID CABRERA Administration
[2020-01-06] MEDS ORDERED: DIGOXIN 0.5 MG/2 ML INJ IV ONE ×3 (15:37→22:00)
[2020-01-07] MEDS: AMIODARONE 900 MG in DEXTROSE 5% IN WATER 482 ML IV SCH (01:28)
[2020-01-07] MEDS: METOPROLOL TARTRATE 25 MG TAB PO SCH ×3 (06:03→21:45)
[2020-01-07 06:14] LABS: Hematocrit 44.4 % (35.5-45.6); Hemoglobin 14.5 gm/dl (11.8-15.2)
[2020-01-07 06:21] LABS: Alanine Aminotransferase 57 units/L (7-56); Albumin 3.5 g/dL (3.9-5); BUN/Creatinine Ratio 24; Blood Urea Nitrogen 19 mg/dL (9-20); Calcium 8.5 mg/dL (8.4-10.2); Hemolysis Index 6
[2020-01-07] MEDS: MORPHINE 2 MG/1 ML INJ IV PRN (08:25)
[2020-01-07] MEDS: ASPIRIN EC 81 MG TAB PO SCH (10:02)
[2020-01-07] MEDS: TICAGRELOR 90 MG TAB PO SCH ×2 (10:02→21:45)
--- NOTE | 2020-01-07 10:40 | Progress Note ---
Assessment and Plan Assessment and plan: Acute coronary syndrome. Pt had emergent lhc showed lt main patent LAD proximal 95% culprit vessel circumflex patent OM1 OM 2 patent RCA patent normal V function. Unsuccessful PCI of his proximal ID with a drug-eluting 4.0 x 18 mm stent. Cardiology following. Continue aspirin, Brilinta, Lipitor and metoprolol. Acute diastolic heart failure. Continue treatment per cardiology. V. fib arrest. Continue ICU/telemetry monitoring. Amiodarone drip discontinued. New onset atrial fibrillation. Continue beta-fredo for rate control Hyperlipidemia. Continue Lipitor The high probability of a clinically significant, sudden or life threatening deterioration of the [cardiac] system(s) required my full and direct attention, intervention and personal management. The aggregate critical care time was [32] minutes. This time is in addition to time spent performing reported procedures but includes the following: [x] Data Review and interpretation [x] Patient assessment and monitoring of vital signs [x] Documentation [x] Medication orders and management History Interval history: Pt is a 54 y.o. male with no significant past medical hx who presented via EMS with c/o intermittent midsternal, non-radiating CP, which he describes as burning and stabbing. No improvement in pain with NTG and morphine. Trop negative. ECG upon admission revealed ST depressions and lateral T wave inversions. F/u ECG obtained during pain-free period normalized - NSR, no acute ischemic changes. CXR showed no acute findings. Patient subsequently developed cardiac arrest while in the emergency department. Patient treated in accordance with ACLS protocol with return of perfusing rhythm. Patient taken urgently to cardiac Nutrition Technician for surgical intervention as per cardiology team. The patient had emergent lhc showed lt main patent LAD proximal 95% culprit vessel circumflex patent OM1 OM 2 patent RCA patent normal V function. Unsuccessful PCI of his proximal ID with a drug-eluting 4.0 x 18 mm stent will be on dual antiplatelet procedure was done by the right radial approach high-dose statin. Hospitalist Physical - Constitutional Vitals: Temp Pulse Resp BP Pulse Ox 98.7 F 78 25 H 152/82 96 01/07/20 08:00 01/07/20 09:45 01/07/20 09:45 01/07/20 09:45 01/07/20 09:45 General appearance: Present: no acute distress - EENT Eyes: Present: PERRL, EOM intact ENT: hearing intact, clear oral mucosa, dentition normal - Neck Neck: Present: supple, normal ROM - Respiratory Respiratory effort: normal Respiratory: bilateral: CTA - Cardiovascular Rhythm: regular Heart Sounds: Present: S1 & S2. Absent: gallop, rub - Extremities Extremities: no ischemia, No edema, Full ROM - Abdominal General gastrointestinal: soft, non-tender, non-distended, normal bowel sounds - Integumentary Integumentary: Present: clear, warm, dry - Neurologic Neurologic: CNII-XII intact, moves all extremities PATRICK score - Patrick Score Age > 65: (0) No Aspirin use within the Past 7 Days: (0) No 3 or more CAD Risk Factors: (0) No 2 or more Angina events in past 24 hrs: (1) Yes Known CAD with more than 50% Stenosis: (0) No Elevated Cardiac Markers: (0) No ST Deviation Greater than 0.5mm: (1) Yes PATRICK Score: 2 Results - Labs CBC & Chem 7: 01/07/20 05:13 01/07/20 05:13 Labs: Laboratory Last Values WBC 15.1 K/mm3 (4.5-11.0) H 01/06/20 03:39 RBC 4.97 M/mm3 (3.65-5.03) 01/06/20 03:39 Hgb 14.5 gm/dl (11.8-15.2) 01/07/20 05:13 Hct 44.4 % (35.5-45.6) 01/07/20 05:13 MCV 91 fl (84-94) 01/06/20 03:39 MCH 31 pg (28-32) 01/06/20 03:39 MCHC 34 % (32-34) 01/06/20 03:39 RDW 13.1 % (13.2-15.2) L 01/06/20 03:39 Plt Count 170 K/mm3 (140-440) 01/07/20 05:13 Lymph % (Auto) 14.1 % (13.4-35.0) 01/06/20 03:39 [place] % (Auto) 7.6 % (0.0-7.3) H 01/06/20 03:39 Eos % (Auto) 0.4 % (0.0-4.3) 01/06/20 03:39 Baso % (Auto) 0.2 % (0.0-1.8) 01/06/20 03:39 Lymph # 2.1 K/mm3 (1.2-5.4) 01/06/20 03:39 [place] # 1.2 K/mm3 (0.0-0.8) H 01/06/20 03:39 Eos # 0.1 K/mm3 (0.0-0.4) 01/06/20 03:39 Baso # 0.0 K/mm3 (0.0-0.1) 01/06/20 03:39 Seg Neutrophils % 77.7 % (40.0-70.0) H 01/06/20 03:39 Seg Neutrophils # 11.8 K/mm3 (1.8-7.7) H 01/06/20 03:39 PT 12.6 Sec. (12.2-14.9) 01/05/20 16:27 INR 0.93 (0.87-1.13) 01/05/20 16:27 APTT 27.5 Sec. (24.2-36.6) 01/05/20 16:27 Heparin Anti-Xa Level 0.16 U.I./ml (0.3-0.7) L 01/06/20 10:40 Sodium 136 mmol/L (137-145) L 01/07/20 05:13 Potassium 4.2 mmol/L (3.6-5.0) 01/07/20 05:13 Chloride 102.9 mmol/L (98-107) 01/07/20 05:13 Carbon Dioxide 23 mmol/L (22-30) 01/07/20 05:13 Anion Gap 14 mmol/L 01/07/20 05:13 BUN 19 mg/dL (9-20) 01/07/20 05:13 Creatinine 0.8 mg/dL (0.8-1.5) 01/07/20 05:13 Estimated GFR > 60 ml/min 01/07/20 05:13 BUN/Creatinine Ratio 24 % 01/07/20 05:13 Glucose 136 mg/dL (75-100) H 01/07/20 05:13 POC Glucose 171 (70-105) H 01/06/20 12:37 Calcium 8.5 mg/dL (8.4-10.2) 01/07/20 05:13 Total Bilirubin 1.20 mg/dL (0.1-1.2) 01/07/20 05:13 AST 62 units/L (5-40) H 01/07/20 05:13 ALT 57 units/L (7-56) H 01/07/20 05:13 Alkaline Phosphatase 57 units/L (35-129) 01/07/20 05:13 Total Creatine Kinase 620 units/L (55-170) H 01/06/20 03:39 CK-MB (CK-2) 78.1 ng/mL (0.0-4.0) H 01/06/20 03:39 CK-MB (CK-2) Rel Index 12.5 (0-4) H 01/06/20 03:39 Troponin T 0.708 ng/mL (0.00-0.029) H* D 01/07/20 05:13 Total Protein 5.7 g/dL (6.3-8.2) L 01/07/20 05:13 Albumin 3.5 g/dL (3.9-5) L 01/07/20 05:13 Albumin/Globulin Ratio 1.6 % 01/07/20 05:13 Triglycerides 48 mg/dL (2-149) 01/05/20 21:02 Cholesterol 152 mg/dL (50-199) 01/05/20 21:02 LDL Cholesterol Direct 90 mg/dL (50-130) 01/05/20 21:02 HDL Cholesterol 63 mg/dL (40-59) H 01/05/20 21:02 Cholesterol/HDL Ratio 2.41 % 01/05/20 21:02 Moses/IV: Voiding Method Urinal IV Catheter Type [Left Hand] Peripheral IV IV Catheter Type [Left Forearm Peripheral IV ] IV Catheter Type [Right Hand] Peripheral IV Active Medications - Current Medications Current Medications: Generic Name Dose Route Start Last Admin Trade Name Freq PRN Reason Stop Dose Admin Aspirin 81 mg 01/06/20 10:00 01/07/20 10:02 Halfprin Ec PO 81 mg QDAY CABRERA Administration Atorvastatin Calcium 40 mg 01/05/20 22:00 01/06/20 22:03 Lipitor PO 40 mg QHS CABRERA Administration Metoprolol Tartrate 25 mg 01/07/20 06:00 01/07/20 06:03 Metoprolol PO 25 mg Q8HR CABRERA Administration Morphine Sulfate 2 mg 01/06/20 06:30 01/07/20 08:25 Morphine IV 2 mg Q6H PRN Administration chest pain Nitroglycerin 0.4 mg 01/06/20 04:24 01/06/20 04:44 Nitrostat SL 0.4 mg .Q5MIN PRN Administration Chest Pain Sodium Chloride 10 ml 01/05/20 22:00 01/07/20 10:03 Sodium Chloride Flush Syringe 10 Ml IV 10 ml BID CABRERA Administration Sodium Chloride 10 ml 01/05/20 18:16 Sodium Chloride Flush Syringe 10 Ml IV PRN PRN LINE FLUSH Ticagrelor 90 mg 01/05/20 22:00 01/07/20 10:02 Brilinta PO 90 mg BID CABRERA Administration
--- NOTE | 2020-01-07 14:19 | Progress Note ---
Assessment and Plan S/p PCI with TERESA to prox LAD on 01/05/2020. Continue ASA, Brilinta, and statin. Pt found to be in AF post-C, which has now converted to NSR. Continue telemetry monitoring. Continue PO Lopressor 25mg q8hr. Possible discharge in AM. F/u with Dr. Wetzel on 01/11/2020 @ 10:30am ([phone]). Pt seen in conjunction with Dr. Marx, who agrees with the assessment and plan of care. - Patient Problems (1) NSTEMI (non-ST elevated myocardial infarction) Current Visit: Yes Status: Resolved (2) Cardiac arrest with successful resuscitation Current Visit: Yes Status: Resolved (3) Atrial fibrillation Current Visit: Yes Status: Acute Plan to address problem: New onset (4) Acute diastolic (congestive) heart failure Current Visit: Yes Status: Acute (5) Hyperlipemia, mixed Current Visit: Yes Status: Chronic Subjective Date of service: 01/07/20 Principal diagnosis: NSTEMI and post V Fib Arrest Interval history: Pt currently chest pain-free. No cardiac complaints. Tele reviewed - pt currently in NSR 80s. Objective Last Vital Signs Temp 98.9 F 01/07/20 12:00 Pulse 87 01/07/20 11:00 Resp 26 H 01/07/20 11:00 BP 147/77 01/07/20 11:00 Pulse Ox 96 01/07/20 12:11 - Physical Examination General: No Apparent Distress HEENT: Positive: EOMI, Normocephaly, Mucus Membranes Moist Neck: Positive: neck supple, trachea midline. Negative: JVD/HJR Cardiac: Positive: Reg Rate and Rhythm, S1/S2 Lungs: Positive: clear to auscultation (bilaterally), No Wheeze, Rales, Rhonchi Neuro: Positive: Grossly Intact, Motor Function Intact, Coordination Normal, Sensory Function Intact. Negative: Numbness, Weakness Abdomen: Positive: Soft, Active Bowel Sounds. Negative: Tender Skin: Negative: Rash, Suspicious Lesions Musculoskeletal: No Pain, Normal Range of Motion Extremities: Present: upper extr. pulses, lower extr. pulses. Absent: edema - Labs and Meds Cardiac Enzymes 01/07/20 Range/Units 05:13 AST 62 H (5-40) units/L CBC 01/07/20 Range/Units 05:13 Hgb 14.5 (11.8-15.2) gm/dl Hct 44.4 (35.5-45.6) % Plt Count 170 (140-440) K/mm3 Comprehensive Metabolic Panel 01/07/20 Range/Units 05:13 Sodium 136 L (137-145) mmol/L Potassium 4.2 (3.6-5.0) mmol/L Chloride 102.9 (98-107) mmol/L Carbon Dioxide 23 (22-30) mmol/L BUN 19 (9-20) mg/dL Creatinine 0.8 (0.8-1.5) mg/dL Glucose 136 H (75-100) mg/dL Calcium 8.5 (8.4-10.2) mg/dL AST 62 H (5-40) units/L ALT 57 H (7-56) units/L Alkaline Phosphatase 57 (35-129) units/L Total Protein 5.7 L (6.3-8.2) g/dL Albumin 3.5 L (3.9-5) g/dL - Imaging and Cardiology EKG: report reviewed, image reviewed Echo: report reviewed (EF 45-50%; abnormal LV diastolic fxn) Cardiac cath: report reviewed (PCI w/TERESA to prox LAD; rest of LAD patent; Diag 1 patent; Cfx patent, bifurcates into large OM1, OM2 patent; RCA patent; PDA, PLV patent.) - Telemetry EKG Rhythm: Sinus Rhythm - EKG Supraventricular dysrhythmia: atrial fibrillation Repolarization changes or abnormalities: ST or T wave suggestive of ischemia
[2020-01-08] MEDS: METOPROLOL TARTRATE 25 MG TAB PO SCH (06:55)
[2020-01-08] MEDS: TICAGRELOR 90 MG TAB PO SCH (09:02)
[2020-01-08] MEDS: ASPIRIN EC 81 MG TAB PO SCH (09:02)
--- NOTE | 2020-01-08 09:02 | Discharge Summary ---
Providers - Providers Date of Admission: 01/05/20 18:16 Date of discharge: 01/08/20 Attending physician: MODE DUNCAN 01/05/20 Consult to Cardiac Rehabilitation [CONS] Routine Reason For Exam: post pci Primary care physician: [employer] PATROL PILOT Hospitalization Reason for admission: cp Condition: Stable Hospital course: Pt is a 54 y.o. male with no significant past medical hx who presented via EMS with c/o intermittent midsternal, non-radiating CP, which he described as burning and stabbing. No improvement in pain with NTG and morphine. Trop negative. ECG upon admission revealed ST depressions and lateral T wave inversions. F/u ECG obtained during pain-free period normalized - NSR, no acute ischemic changes. CXR showed no acute findings. Patient subsequently developed cardiac arrest while in the emergency department. Patient treated in accordance with ACLS protocol with return of perfusing rhythm. Patient taken urgently to cardiac Certified Registered Locksmith for surgical intervention as per cardiology team. The patient had emergent lhc showed lt main patent LAD proximal 95% culprit vessel circumflex patent OM1 OM 2 patent RCA patent normal V function. Unsuccessful PCI of his proximal ID with a drug-eluting 4.0 x 18 mm stent. Echocardiogram revealed EF 45 to 50% with abnormal left ventricular diastolic function. Post- cath, patient was treated with aspirin, Brilinta and statin. Patient did have other complications during hospitalization which included atrial fibrillation post LHC which later converted to normal sinus rhythm with initial treatment of IV amiodarone and IV heparin. Patient was later started on Lopressor 25 mg every 8 hour and rate is controlled. Discharge diagnoses include non-ST elevation IN, cardiac arrest/V. fib arrest with successful resuscitation, atrial fibrillation with RVR, acute diastolic heart failure and hyperlipidemia. Disposition: - TO HOME OR SELFCARE Time spent for discharge: 35 - Discharge Diagnoses (1) Acute diastolic (congestive) heart failure Status: Acute (2) Atrial fibrillation Status: Acute (3) Diastolic dysfunction Status: Acute (4) HLD (hyperlipidemia) Status: Acute (5) Cardiac arrest with successful resuscitation Status: Resolved (6) NSTEMI (non-ST elevated myocardial infarction) Status: Resolved Core Measure Documentation - Palliative Care Palliative Care/ Comfort Measures: Not Applicable - Core Measures Any of the following diagnoses?: none Exam - Constitutional Vitals: Temp Pulse Resp BP Pulse Ox 99.3 F 80 16 126/78 99 01/08/20 04:28 01/08/20 06:55 01/08/20 04:28 01/08/20 06:55 01/08/20 08:31 General appearance: Present: no acute distress, well-nourished - EENT Eyes: Present: PERRL ENT: hearing intact, clear oral mucosa - Neck Neck: Present: supple, normal ROM - Respiratory Respiratory effort: normal Respiratory: bilateral: CTA - Cardiovascular Heart Sounds: Present: S1 & S2. Absent: rub, click - Extremities Extremities: pulses symmetrical, No edema Peripheral Pulses: within normal limits - Abdominal General gastrointestinal: Present: soft, non-tender, non-distended, normal bowel sounds Male genitourinary: Present: normal - Integumentary Integumentary: Present: clear, warm, dry - Musculoskeletal Musculoskeletal: gait normal, strength equal bilaterally - Psychiatric Psychiatric: appropriate mood/affect, intact judgment & insight - Neurologic Neurologic: CNII-XII intact, moves all extremities Plan Activity: advance as tolerated Weight Bearing Status: Weight Bear as Tolerated Diet: low fat, low cholesterol, low salt Follow up with: PRIMARY CARE, [Primary Care Provider] - 3-5 Days TIFFANY RIOS MD [Staff Physician] - 7 Days Prescriptions: Ticagrelor [Brilinta] 90 mg PO BID #60 tablet Aspirin EC [Halfprin EC] 81 mg PO QDAY #30 tablet AtorvaSTATin [Lipitor] 40 mg PO QHS #30 tablet Metoprolol [Lopressor TAB] 25 mg PO Q8HR #90 tablet
[2020-01-08 13:30] VITALS: BP 124/76
--- NOTE | 2020-01-08 14:37 | Progress Note ---
<BRIT DUNCAN - Last Filed: 01/08/20 14:41> Assessment and Plan S/p PCI with TERESA to prox LAD on 01/05/2020. Continue ASA, Brilinta, and statin. Pt found to be in AF post-LHC, which has now converted to NSR. Continue PO Lopressor 25mg q8hr. Will discuss need for OAC at OP f/u appointment. Currently stable cardiac status. Pt may be discharged from a Cardiology standpoint. F/u with Dr. Wetzel on 01/11/2020 @ 10:30am ([phone]). Pt seen in conjunction with Dr. Arnold, who agrees with the assessment and plan of care. - Patient Problems (1) NSTEMI (non-ST elevated myocardial infarction) Status: Resolved (2) Cardiac arrest with successful resuscitation Status: Resolved (3) Atrial fibrillation Status: Acute Plan to address problem: New onset (4) Acute diastolic (congestive) heart failure Status: Acute (5) Hyperlipemia, mixed Status: Chronic Subjective Date of service: 01/08/20 Principal diagnosis: NSTEMI and post V Fib Arrest Interval history: Pt lying comfortably in bed upon exam. He reports swelling in his L hand - ?infiltration of L hand IV site (will re-check at OP f/u appt). Pt denies CP, SOB, or any additional cardiac complaints. Tele reviewed - pt currently in NSR 70s with no acute events noted overnight. Objective Last Vital Signs Temp 98.6 F 01/08/20 12:05 Pulse 75 01/08/20 12:05 Resp 20 01/08/20 12:15 BP 124/76 01/08/20 12:05 Pulse Ox 96 01/08/20 12:15 - Physical Examination General: No Apparent Distress HEENT: Positive: EOMI, Normocephaly, Mucus Membranes Moist Neck: Positive: neck supple, trachea midline. Negative: JVD/HJR Cardiac: Positive: Reg Rate and Rhythm, S1/S2 Lungs: Positive: clear to auscultation (bilaterally) Neuro: Positive: Grossly Intact, Motor Function Intact, Coordination Normal, Sensory Function Intact. Negative: Numbness, Weakness Abdomen: Positive: Soft, Active Bowel Sounds. Negative: Tender Skin: Negative: Rash, Suspicious Lesions Musculoskeletal: No Pain, Normal Range of Motion Extremities: Present: upper extr. pulses, lower extr. pulses. Absent: edema - Imaging and Cardiology EKG: report reviewed, image reviewed Echo: report reviewed (EF 45-50%; abnormal LV diastolic fxn) Cardiac cath: report reviewed (PCI w/TERESA to prox LAD; rest of LAD patent; Diag 1 patent; Cfx patent, bifurcates into large OM1, OM2 patent; RCA patent; PDA, PLV patent) - Telemetry EKG Rhythm: Sinus Rhythm - EKG Supraventricular dysrhythmia: atrial fibrillation <FISH ARNOLD R - Last Filed: 01/08/20 14:55> Assessment and Plan 01/08/2020>Patient had transient atrial fibrillation during acute ischemic event,lasted < 12 hrs,most likely atrial fibrillation is related to acute even t,considering this will continue antiplatelet agents (asa/Brilinta),consider anticoagulation if has any recurrent episodes of atrial fibrillation. Objective Vital Signs Temp Pulse Pulse Pulse Pulse Resp BP 01/08/20 12:15 20 01/08/20 12:05 98.6 F 75 18 124/76 01/08/20 08:31 01/08/20 08:23 98.5 F 69 18 127/75 01/08/20 06:55 80 126/78 01/08/20 05:00 84 01/08/20 04:28 99.3 F 84 16 126/78 01/08/20 01:00 73 01/07/20 23:37 98.9 F 73 18 107/55 01/07/20 22:00 88 83 83 16 01/07/20 21:45 83 139/71 01/07/20 21:28 01/07/20 21:00 88 01/07/20 19:21 99.8 F H 83 18 139/71 01/07/20 17:46 98.6 F 80 16 112/63 01/07/20 16:01 79 24 154/85 01/07/20 16:00 98.4 F 01/07/20 15:51 82 26 H 154/85 01/07/20 15:45 89 13 154/85 01/07/20 15:31 83 12 154/85 01/07/20 15:15 90 12 154/85 01/07/20 15:00 83 16 154/85 01/07/20 14:53 89 159/78 Pulse Ox 01/08/20 12:15 96 01/08/20 12:05 96 01/08/20 08:31 99 01/08/20 08:23 96 01/08/20 06:55 01/08/20 05:00 01/08/20 04:28 95 01/08/20 01:00 01/07/20 23:37 95 01/07/20 22:00 96 01/07/20 21:45 01/07/20 21:28 95 01/07/20 21:00 01/07/20 19:21 97 01/07/20 17:46 96 01/07/20 16:01 97 01/07/20 16:00 01/07/20 15:51 97 01/07/20 15:45 98 01/07/20 15:31 98 01/07/20 15:15 98 01/07/20 15:00 96 01/07/20 14:53
== END 2020-01-08 14:30 | disposition home or self-care (01) | DRG 246 ==
LOC: ED 15:41 → CC1 18:16 → 4A 01-07 16:15
PROVIDERS: ADMIT Internal Medicine; ATTEND Hospitalist
PROC: 027034Z Dilation of Coronary Artery, One Artery with Drug-eluting Intraluminal Device, Percutaneous Approach (ICD-10-PCS; principal; 2020-01-05)
PROC: 4A023N7 Measurement of Cardiac Sampling and Pressure, Left Heart, Percutaneous Approach (ICD-10-PCS; 2020-01-05)
PROC: B2111ZZ Fluoroscopy of Multiple Coronary Arteries using Low Osmolar Contrast (ICD-10-PCS; 2020-01-05)
PROC: B241ZZ3 Ultrasonography of Multiple Coronary Arteries, Intravascular (ICD-10-PCS; 2020-01-05)
PROC: 5A12012 Performance of Cardiac Output, Single, Manual (ICD-10-PCS; 2020-01-05)
DX: I21.4 Non-ST elevation (NSTEMI) myocardial infarction (principal); I50.33 Acute on chronic diastolic (congestive) heart failure; I46.9 Cardiac arrest, cause unspecified; E66.2 Morbid (severe) obesity with alveolar hypoventilation; I47.2 Ventricular tachycardia; I20.0 Unstable angina; E78.2 Mixed hyperlipidemia; I11.0 Hypertensive heart disease with heart failure; I48.91 Unspecified atrial fibrillation; Z79.899 Other long term (current) drug therapy; Z98.52 Vasectomy status; Z68.36 Body mass index [BMI] 36.0-36.9, adult
CPT/HCPCS: 36415; 71045; 80048; 80053; 80061; 82550; 82553; 82962; 84484; 85014; 85018; 85025; 85049; 85520; 85610; 85730; 92941; 92978; 93005; 93010; 93306; 93458; 94760; G0378; A9270-GY; C1725; C1753; C1769; C1874; C1887; C1894; C9606; J0282; J1160; J1644; J1885; J2250; J2270; J2405; J3010; J7030; J7060; Q9967

== ENCOUNTER 2020-09-12 11:33 | Emergency (ER) | payer SELFPAY ==
[2020-09-12 11:39] VITALS: BP 167/92
== END 2020-09-12 12:29 | disposition left against medical advice (07) ==
LOC: ED 11:33
DX: H53.2 Diplopia (principal); Z53.21 Procedure and treatment not carried out due to patient leaving prior to being seen by health care provider